=== PATIENT | female | born 1995 | race Caucasian/White ===

== ENCOUNTER 2016-04-07 07:36 | Outpatient (RCR) | payer OTHER | END 2016-04-21 | LOC: M PT 07:36 | PROVIDERS: ATTEND Otolaryngology | DX: Z51.89 Encounter for other specified aftercare (principal); M26.69 Other specified disorders of temporomandibular joint ==

== ENCOUNTER → 2016-05-14 | Outpatient (REF) ==
--- NOTE | 2016-05-14 10:37 | REP ---
SINUSES, FOUR VIEWS: HISTORY: Degenerative disc disease. Mucosal thickening is present in the right maxillary sinus. The remaining sinuses are clear. There is no fracture or bone lesion. IMPRESSION: Right maxillary sinus mucosal thickening. Signed by Nitin Cross MD 05/14/2016 10:37 A
--- NOTE | 2016-05-14 10:49 | REP ---
Clinical: Chest pain . Comparison: None . Technique: PA and lateral. Findings: The mediastinum and cardiac silhouette are normal. The lung thorne are clear and without acute consolidation, effusion, or pneumothorax. The skeletal structures are intact and normal. Impression: 1. No acute cardiopulmonary process. Signed by Nas Perez MD 05/14/2016 10:41 A
== END ==
LOC: M SMT 09:42
PROVIDERS: ATTEND Internal Medicine
DX: Z02.1 Encounter for pre-employment examination (principal)

== ENCOUNTER → 2016-07-10 | Day surgery (SDC) | payer OTHER ==
[~2016-07-10] VITALS: Ht 165.1 cm; Wt 77.1 kg
[~2016-07-10] MED LIST: BC IMPLANT; BUPR10TASR PO; CIPRODEX OTIC SUSP 7.5ML As Ordered ONE; HYDROmorphone HCL 1 MG/ML SYRINGE (J1170) IV PRN; IBUPROFEN 600 MG TAB PO ONE; LIDOCAINE 2% INJ 100 MG/5 ML SDV (FOR ANES.) As Ordered ONE; LR 1,000 ML IV SCH; MAGN400C3 PO; METOCLOPRAMIDE INJ 10MG/2ML VIAL (J2765) IV PRN; MIDAZOLAM INJ 2 MG/2 ML VIAL (J2250) As Ordered ONE; ONDANSETRON 4MG/2ML VIAL (J2405) As Ordered ONE; ONDANSETRON 4MG/2ML VIAL (J2405) IV PRN; PERCOCET 5MG/325MG TAB PO PRN; PROPOFOL 200 MG/20 ML VIAL As Ordered ONE; PROZ20CA11 PO; VITA50TA35 PO; dexameTHASONE 4 MG/ML 1ML VIAL (J1100) As Ordered ONE; fentaNYL 100 MCG/2 ML INJECTION (J3010) As Ordered ONE; fentaNYL 100 MCG/2 ML INJECTION (J3010) IV PRN
[2016-07-10 08:04] LABS: CONTROL LINE UCG INT CTR LINE PRESENT
--- NOTE | 2016-07-10 09:22 | RO ---
DATE OF PROCEDURE: 07/10/2016 PREPROCEDURE DIAGNOSIS: Eustachian tube dysfunction. POSTPROCEDURE DIAGNOSIS: Eustachian tube dysfunction. PROCEDURE: Bilateral tympanostomy. SURGEON: Dr. Anil Barakat OIL LEASE [employer]ER: ANESTHESIA: General. ESTIMATED BLOOD LOSS: DESCRIPTION OF OPERATION: Under general anesthesia, a speculum was placed in the right ear. Wax was cleaned. Incision was made anterior-inferior and Triune tube was placed. Ciprodex drops were placed in the ear. The same procedure and finding carried on the opposite side. The patient tolerated the procedure well and was transferred to the recovery room in excellent condition.
[2016-07-10 10:30] VITALS: BP 120/58
== END | disposition home or self-care (01) ==
LOC: M SDC 07:08
PROVIDERS: ATTEND Otolaryngology
DX: H69.93 Unspecified Eustachian tube disorder, bilateral (principal); F41.9 Anxiety disorder, unspecified; F32.9 Major depressive disorder, single episode, unspecified; G43.909 Migraine, unspecified, not intractable, without status migrainosus; Z79.899 Other long term (current) drug therapy
CPT/HCPCS: 69436; 84703; J1100; J2250; J2405; J3010